=== PATIENT | male | born 1950 | race Caucasian/White ===

== ENCOUNTER 2016-09-13 13:35 | Inpatient (IN) | payer SELFPAY ==
[~2016-09-13] VITALS: Ht 180.3 cm; Wt 65.5 kg
[~2016-09-13 13:35] MED LIST: FLUT1DIS3 IH; TRAM50TA PO; VENTOLIN HFA18 GM INH
[2016-09-13] MEDS ORDERED: IV NORMAL SALINE 1000ML BAG 1,000 ML IV ONE (13:45)
[2016-09-13] MEDS ORDERED: methylPREDNISolone SOD SUCC PF 125 MG/2 ML VIAL. IV ONE (13:45)
[2016-09-13] MEDS ORDERED: IPRATRPIUM/ALBUTEROL 0.5/2.5MG 3 ML NEBU. NEB ONE (13:45)
[2016-09-13] MEDS ORDERED: MORPHINE SULFATE 10 MG/ML VIAL. IV ONE (13:45)
[2016-09-13 14:27] LABS: BASO % 0 % (0-3); EOS % 1 % (0-3); HEMATOCRIT 35.5 % (39.0-53.0); HEMOGLOBIN 11.6 g/dL (13.0-17.5); LYMPH # 0.8 x10^3/uL (1.0-4.8); LYMPH % 7 % (24-48); MEAN CORPUSCULAR HEMOGLOBIN 28 pg (25-35); MEAN CORPUSCULAR HGB CONC 33 g/dL (31-37); MEAN CORPUSCULAR VOLUME 86 fL (79-100); MONO % 7 % (0-9); NEUT % 84 % (31-73); PLATELET COUNT 352 x10^3/uL (140-400); RED BLOOD COUNT 4.12 x10^6/uL (4.30-5.70); RED CELL DISTRIBUTION WIDTH 15.1 % (11.5-14.5); WHITE BLOOD COUNT 10.6 x10^3/uL (4.0-11.0)
--- NOTE | 2016-09-13 14:34 | PHYS DOC ---
Past Medical History Past Medical History: COPD, Hypertension Additional Past Medical Histor: non small cell CA right lung dx 08/28/16 Past Surgical History: Other Additional Past Surgical Histo: L rotator cuff Alcohol Use: None Drug Use: None Adult General Chief Complaint Chief Complaint: WEAKNESS/GENERALIZED HPI HPI 65-year-old male who was recently diagnosed with non-small cell lung cancer presents with several day history of progressive shortness of breath and dyspnea on exertion. He denies any hemoptysis. He denies any fever chills or sweats. He states he is scheduled to start chemotherapy at [facility] on September 18, 2016. He states he did not go to today because they were closed ambulances. [] Review of Systems Review of Systems Constitutional: Denies fever or chills [] Eyes: Denies change in visual acuity, redness, or eye pain [] HENT: Denies nasal congestion or sore throat [] Respiratory: Shortness of breath [] Cardiovascular: No additional information not addressed in HPI [] GI: Denies abdominal pain, nausea, vomiting, bloody stools or diarrhea [] : Denies dysuria or hematuria [] Musculoskeletal: Denies back pain or joint pain [] Integument: Denies rash or skin lesions [] Neurologic: Denies headache, focal weakness or sensory changes [] Endocrine: Denies polyuria or polydipsia [] Current Medications Current Medications Current Medications Medications (Trade) Dose Ordered Sig/Bailey Start Time Stop Time Status Last Admin Dose Admin Albuterol/ Ipratropium (Duoneb) 3 ml 1X ONCE 09/13/16 13:45 09/13/16 13:48 DC 09/13/16 13:56 3 ML Methylprednisolone Sodium Succinate 125 mg 125 mg 1X ONCE 09/13/16 13:45 09/13/16 13:48 DC 09/13/16 14:13 125 MG Morphine Sulfate 5 mg 1X ONCE 09/13/16 13:45 09/13/16 13:48 DC 09/13/16 14:13 5 MG Sodium Chloride (Iv Sodium Chloride 0.9% 1000ml Bag) 1,000 ml @ 1,000 mls/hr 1X ONCE 09/13/16 13:45 09/13/16 14:44 09/13/16 14:12 1,000 MLS/HR Allergies Allergies Allergies Coded Allergies Type Severity Reaction Last Updated Verified Penicillins Allergy Intermediate 05/24/16 Yes Sulfa (Sulfonamide Antibiotics) Allergy Intermediate 05/24/16 Yes Physical Exam Physical Exam Constitutional: Well developed, well nourished, mild distress, non-toxic appearance. [] HENT: Normocephalic, atraumatic, bilateral external ears normal, oropharynx moist, no oral exudates, nose normal. [] Eyes: PERRLA, EOMI, conjunctiva normal, no discharge. [] Neck: Normal range of motion, no tenderness, supple, no stridor. [] Cardiovascular:Heart rate regular rhythm, no murmur [] Lungs & Thorax: Good breath sounds bilaterally no wheezes no rales [] Abdomen: Bowel sounds normal, soft, no tenderness, no masses, no pulsatile masses. [] Skin: Warm, dry, no erythema, no rash. [] Back: No tenderness, no CVA tenderness. [] Extremities: No tenderness, no cyanosis, no clubbing, ROM intact, no edema. [] Neurologic: Alert and oriented X 3, normal motor function, normal sensory function, no focal deficits noted. [] Psychologic: Depressed affect. [] Current Patient Data Vital Signs Vital Signs Date Time Temp Pulse Resp B/P Pulse Ox O2 Delivery O2 Flow Rate FiO2 09/13/16 14:13 23 94 3.0 09/13/16 13:56 Nasal Cannula 09/13/16 13:35 97.8 122 133/78 97.8 Lab Values Laboratory Tests Test 09/13/16 14:00 White Blood Count 10.6x10^3/uL (4.0-11.0) Red Blood Count 4.12x10^6/uL (4.30-5.70) L Hemoglobin 11.6g/dL (13.0-17.5) L Hematocrit 35.5% (39.0-53.0) L Mean Corpuscular Volume 86fL (79-100) Mean Corpuscular Hemoglobin 28pg (25-35) Mean Corpuscular Hemoglobin Concent 33g/dL (31-37) Red Cell Distribution Width 15.1% (11.5-14.5) H Platelet Count 352x10^3/uL (140-400) Neutrophils (%) (Auto) 84% (31-73) H Lymphocytes (%) (Auto) 7% (24-48) L Monocytes (%) (Auto) 7% (0-9) Eosinophils (%) (Auto) 1% (0-3) Basophils (%) (Auto) 0% (0-3) Neutrophils # (Auto) 8.9x10^3uL (1.8-7.7) H Lymphocytes # (Auto) 0.8x10^3/uL (1.0-4.8) L Monocytes # (Auto) 0.7x10^3/uL (0.0-1.1) Eosinophils # (Auto) 0.1x10^3/uL (0.0-0.7) Basophils # (Auto) 0.0x10^3/uL (0.0-0.2) Laboratory Tests 09/13/16 14:00 EKG EKG [EKG: Sinus tachycardia rate of [address]-T changes] Radiology/Procedures Radiology/Procedures [] Course & Med Decision Making Course & Med Decision Making Pertinent Labs and Imaging studies reviewed. (See chart for details) [] Dragon Disclaimer Dragon Disclaimer This electronic medical record was generated, in whole or in part, using a voice recognition dictation system. Departure Departure Referrals: CHAS BRAY (PCP) CECI BAKER DO Sep 13, 2016 14:34
[2016-09-13 14:38] LABS: CALCIUM 9.8 mg/dL (8.5-10.1); CREATININE 0.9 mg/dL (0.7-1.3); GFR 85.2; POTASSIUM 3.3 mmol/L (3.5-5.1)
[2016-09-13 14:44] LABS: ALBUMIN 2.9 g/dL (3.4-5.0); ALBUMIN/GLOBULIN RATIO 0.7 (1.0-1.7); TOTAL BILIRUBIN 0.4 mg/dL (0.2-1.0)
[2016-09-13] MEDS ORDERED: FENTANYL PF 100 MCG/2 ML VIAL. IV PRN (14:45)
[2016-09-13] MEDS ORDERED: ACETAMINOPHEN 325 MG TABLET. PO PRN ×2 (14:45→16:00)
[2016-09-13] MEDS ORDERED: ONDANSETRON PF 4 MG/2 ML VIAL. IV PRN ×2 (14:45→16:00)
--- NOTE | 2016-09-13 14:58 | EKG ---
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
[2016-09-13] MEDS ORDERED: CONTRAST GIVEN MC PRN (15:00)
[2016-09-13] MEDS ORDERED: IOHEXOL 300 MG/ML 100ML VIAL. IV ONE (15:15)
[2016-09-13] MEDS: IV NORMAL SALINE 1000ML BAG 1,000 ML IV SCH ×2 (15:18→21:31)
--- NOTE | 2016-09-13 15:37 | PDOC1 ---
History and Physical Date of Admission Date of Admission 09/13/16 Identification/Chief Complaint Chief Complaint sob, weakness Problems: Source Source: Caregiver, Chart review, Patient History of Present Illness History of Present Illness HPI HPI 65-year-old male comes for weakness mainly. I REMember this pt who was with me in 05/2016 for sob, with abd ct with possible lung Ca, Dr. peralta recommend broch and pt has not insurance to do as outpt bronch. However, pt felt ok at that time and signed AMA ,refused to do bronch and wanted to go home that day. His PMD even called me on the same day asking me why pt goes to his office now and i told him that pt signed AMA and his PMD justed said to fu with dr. Peralta as outpt. Not sure pt really fu coz now told me another story. Pt was sent to for CXR and was found lung CA, got bx on 08/28/16, but pathology still pending and supposed to have an appt with pathologist for the result next week. Pt has been so weak, with chronic cough, sputum, on home ow 2-3 L. denies fever , chills, + nausea, no vomiting. Pt has whole body joint pain, mainly shoulder and hips. supposed to [facility] but [facility] is closed for ER as per ERP. as per ERP, path is non small lung Ca, but denies. Past Medical History Cardiovascular: HTN Pulmonary: Asthma, COPD Past Surgical History Past Surgical History: No pertinent history Family History Family History: No Significant Social History Smoke: <1 pack per day ALCOHOL: occassional Drugs: None Current Medications Current Medications Current Medications Medications (Trade) Dose Ordered Sig/Bailey Start Time Stop Time Status Last Admin Dose Admin Acetaminophen (Tylenol) 650 mg PRN Q4HRS PRN 09/13/16 14:45 09/14/16 14:44 Albuterol/ Ipratropium (Duoneb) 3 ml RTQID 09/13/16 16:00 09/14/16 15:59 Fentanyl Citrate 50 mcg 50 mcg PRN Q2HR PRN 09/13/16 14:45 09/14/16 14:44 Info (Do NOT chart on this entry -- for MONITORING) 1 each PRN DAILY PRN 09/13/16 15:00 09/15/16 14:59 Iohexol (Omnipaque 300 Mg/ml) 75 ml 1X ONCE 09/13/16 15:15 09/13/16 15:16 DC 09/13/16 15:04 75 ML Methylprednisolone Sodium Succinate (Solu-Medrol 125mg Vial) 125 mg 1X ONCE 09/13/16 13:45 09/13/16 13:48 DC 09/13/16 14:13 125 MG Morphine Sulfate 5 mg 1X ONCE 09/13/16 13:45 09/13/16 13:48 DC 09/13/16 14:13 5 MG Ondansetron HCl (Zofran) 4 mg PRN Q8HRS PRN 09/13/16 14:45 09/14/16 14:44 Sodium Chloride (Iv Sodium Chloride 0.9% 1000ml Bag) 1,000 ml @ 150 mls/hr Q6H40M 09/13/16 14:45 09/14/16 14:44 09/13/16 15:18 150 MLS/HR Allergies Allergies Allergies Coded Allergies Type Severity Reaction Last Updated Verified Penicillins Allergy Intermediate 05/24/16 Yes Sulfa (Sulfonamide Antibiotics) Allergy Intermediate 05/24/16 Yes ROS Review of System CONSTITUTIONAL: No fever or chills EYES: No recent changes SKIN: No rash or itching CARDIOVASCULAR: No chest pain, syncope, palpitations, or edema RESPIRATORY: No SOB or cough GASTROINTESTINAL: No nausea, vomiting or abdominal pain NEUROLOGICAL: No headaches or weakness ENDOCRINE: No cold or heat intolerance GENITOURINARY: No urgency or frequency of urination MUSCULOSKELETAL: No back pain or joint pain LYMPHATICS: No enlarged lymph nodes PSYCHIATRIC: No anxiety or depression Physical Exam Physical Exam GEN.: No apparent distress. Alert and oriented. very weak. HEENT: Head is normocephalic, atraumatic NECK: Supple. LUNGS: bl decreased bs. HEART: RRR, S1, S2 present. Peripheral pulses intact ABDOMEN: Soft, nontender. Positive bowel sounds. EXTREMITIES: Without any cyanosis. NEUROLOGIC: Normal speech, normal tone PSYCHIATRIC: Normal affect, normal mood. SKIN: No ulcerations Vitals Vitals Vital Signs Date Time Temp Pulse Resp B/P Pulse Ox O2 Delivery O2 Flow Rate FiO2 09/13/16 15:08 111 28 147/83 94 Nasal Cannula 3 09/13/16 13:35 97.8 97.8 Labs Labs Laboratory Tests Test 09/13/16 14:00 White Blood Count 10.6x10^3/uL (4.0-11.0) Red Blood Count 4.12x10^6/uL (4.30-5.70) Hemoglobin 11.6g/dL (13.0-17.5) Hematocrit 35.5% (39.0-53.0) Mean Corpuscular Volume 86fL (79-100) Mean Corpuscular Hemoglobin 28pg (25-35) Mean Corpuscular Hemoglobin Concent 33g/dL (31-37) Red Cell Distribution Width 15.1% (11.5-14.5) Platelet Count 352x10^3/uL (140-400) Neutrophils (%) (Auto) 84% (31-73) Lymphocytes (%) (Auto) 7% (24-48) Monocytes (%) (Auto) 7% (0-9) Eosinophils (%) (Auto) 1% (0-3) Basophils (%) (Auto) 0% (0-3) Neutrophils # (Auto) 8.9x10^3uL (1.8-7.7) Lymphocytes # (Auto) 0.8x10^3/uL (1.0-4.8) Monocytes # (Auto) 0.7x10^3/uL (0.0-1.1) Eosinophils # (Auto) 0.1x10^3/uL (0.0-0.7) Basophils # (Auto) 0.0x10^3/uL (0.0-0.2) Sodium Level 134mmol/L (136-145) Potassium Level 3.3mmol/L (3.5-5.1) Chloride Level 93mmol/L (98-107) Carbon Dioxide Level 33mmol/L (21-32) Anion Gap 8 (6-14) Blood Urea Nitrogen 5mg/dL (8-26) Creatinine 0.9mg/dL (0.7-1.3) Estimated GFR (Cockcroft-Gault) 85.2 BUN/Creatinine Ratio 6 (6-20) Glucose Level 97mg/dL (70-99) Lactic Acid Level 0.9mmol/L (0.4-2.0) Calcium Level 9.8mg/dL (8.5-10.1) Total Bilirubin 0.4mg/dL (0.2-1.0) Aspartate Amino Transf (AST/SGOT) 19U/L (15-37) Alanine Aminotransferase (ALT/SGPT) 22U/L (16-63) Alkaline Phosphatase 98U/L (46-116) Troponin I Quantitative 0.023ng/mL (0.000-0.055) Total Protein 7.0g/dL (6.4-8.2) Albumin 2.9g/dL (3.4-5.0) Albumin/Globulin Ratio 0.7 (1.0-1.7) Laboratory Tests Test 09/13/16 14:00 White Blood Count 10.6x10^3/uL (4.0-11.0) Red Blood Count 4.12x10^6/uL (4.30-5.70) Hemoglobin 11.6g/dL (13.0-17.5) Hematocrit 35.5% (39.0-53.0) Mean Corpuscular Volume 86fL (79-100) Mean Corpuscular Hemoglobin 28pg (25-35) Mean Corpuscular Hemoglobin Concent 33g/dL (31-37) Red Cell Distribution Width 15.1% (11.5-14.5) Platelet Count 352x10^3/uL (140-400) Neutrophils (%) (Auto) 84% (31-73) Lymphocytes (%) (Auto) 7% (24-48) Monocytes (%) (Auto) 7% (0-9) Eosinophils (%) (Auto) 1% (0-3) Basophils (%) (Auto) 0% (0-3) Neutrophils # (Auto) 8.9x10^3uL (1.8-7.7) Lymphocytes # (Auto) 0.8x10^3/uL (1.0-4.8) Monocytes # (Auto) 0.7x10^3/uL (0.0-1.1) Eosinophils # (Auto) 0.1x10^3/uL (0.0-0.7) Basophils # (Auto) 0.0x10^3/uL (0.0-0.2) Sodium Level 134mmol/L (136-145) Potassium Level 3.3mmol/L (3.5-5.1) Chloride Level 93mmol/L (98-107) Carbon Dioxide Level 33mmol/L (21-32) Anion Gap 8 (6-14) Blood Urea Nitrogen 5mg/dL (8-26) Creatinine 0.9mg/dL (0.7-1.3) Estimated GFR (Cockcroft-Gault) 85.2 BUN/Creatinine Ratio 6 (6-20) Glucose Level 97mg/dL (70-99) Lactic Acid Level 0.9mmol/L (0.4-2.0) Calcium Level 9.8mg/dL (8.5-10.1) Total Bilirubin 0.4mg/dL (0.2-1.0) Aspartate Amino Transf (AST/SGOT) 19U/L (15-37) Alanine Aminotransferase (ALT/SGPT) 22U/L (16-63) Alkaline Phosphatase 98U/L (46-116) Troponin I Quantitative 0.023ng/mL (0.000-0.055) Total Protein 7.0g/dL (6.4-8.2) Albumin 2.9g/dL (3.4-5.0) Albumin/Globulin Ratio 0.7 (1.0-1.7) VTE Prophylaxis Ordered VTE Prophylaxis Devices: Yes VTE Pharmacological Prophylaxi: Yes Assessment/Plan Assessment/Plan Acute on chronic hypoxic resp failure , home o2 2L newly diagnosed lung Ca, path pending COPD HTN + SIRS wo infection, 2/2 lung Ca likely MILD Malnutrition hypokalemia joint pain, need rule out bone mets smoker plan: 1. pulm, onco consult 2. duone neb 3. pain control 4. CTA chest done, result pending check CT for abd/pelvis for mets, bone scan for mets 5. IVF replete K dvt ppx PTOT poor prognosis MIKE DESHPANDE MD Sep 13, 2016 15:37
--- NOTE | 2016-09-13 15:43 | RAD ---
CTA of the chest with contrast, 09/13/2016: History: Lung cancer, pain Multidetector CT imaging was performed following an IV bolus injection of iodinated contrast material. Multiplanar reconstructions were produced including coronal MIP images. Comparison is made to a study from 05/25/2016. The central pulmonary arteries are well opacified and no filling defects are seen to suggest pulmonary emboli. There is calcific plaquing of the thoracic aorta and its branches without evidence of aneurysm. Scattered coronary artery calcifications are present. A trace amount pericardial fluid is evident. There is mediastinal adenopathy which has progressed since the previous exam. This includes a 4 x 2.2 cm node at the left AP window level. A left hilar mass has increased in size. There is debris in the lateral aspect of the left main bronchus with lack of aeration of the proximal left upper and lower lobe bronchi at the level of this mass. Invasive tumor is likely. There are emphysematous changes in both lungs with scattered parenchymal scars. There is mild atelectasis/consolidation posterolaterally in the left lower lobe. There are additional tree-in-bud opacities in the left lower lobe and posterior aspect of the left upper lobe compatible with pneumonia, probably on a postobstructive basis. A destructive process present in the posterior aspect of the right third rib on the previous study has progressed. There is now a moderate sized mass with increasing rib destruction. There is also destruction of portions of the right side of the L2 and L3 vertebral bodies as well as the posterior elements. The left posterior elements at T3 are also partially destroyed. There is presumably involvement of the spinal canal at this level. Several additional destructive bony lesions are seen in the lower thoracic spine. These include the left pedicle at T12, and the right transverse process and pedicle at T10. There are 13 sets of ribs in this patient. The ill-defined low density lesion seen in the left lobe of liver on the previous study appears to have increased in size. There is a tiny radiopacity in the posterior aspect of the gallbladder. IMPRESSION: 1. No CT evidence of central pulmonary emboli. 2. Enlarging left hilar mass with obstruction of the central bronchi on the left and increasing adjacent mediastinal adenopathy, compatible with the given history of lung cancer. 3. Mild left parahilar and lower lobe infiltrates suggesting pneumonia on a postobstructive basis. 4. Emphysema with parenchymal scarring. 5. 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 6. Additional lower thoracic bony metastases. 7. Enlarging liver lesion, likely on a metastatic basis. PQRS Compliance Statement: One or more of the following individualized dose reduction techniques were utilized for this examination: 1. Automated exposure control 2. Adjustment of the mA and/or kV according to patient size 3. Use of iterative reconstruction technique
[2016-09-13] MEDS ORDERED: ALBUTEROL SULFATE 2.5 MG/3 ML NEBU. NEB PRN (16:00)
[2016-09-13] MEDS ORDERED: MORPHINE SULFATE 2 MG/ML DISP.SYRIN. IV PRN (16:00)
[2016-09-13] MEDS ORDERED: hydrALAZINE 20 MG/ML VIAL. IVP PRN (16:00)
[2016-09-13] MEDS ORDERED: IPRATRPIUM/ALBUTEROL 0.5/2.5MG 3 ML NEBU. NEB SCH (16:00)
[2016-09-13] MEDS ORDERED: POTASSIUM CHLORIDE 20 MEQ TABLET.ER. PO ONE (16:00)
[2016-09-13] MEDS: ENOXAPARIN 40 MG/0.4 ML DISP.SYRIN. SQ SCH (16:49)
[2016-09-13] MEDS: TRAMADOL 50 MG TABLET. PO PRN (16:50)
[2016-09-13 17:30] VITALS: BP 133/85
[2016-09-13 19:30] VITALS: BP 111/64
[2016-09-13] MEDS: IPRATRPIUM/ALBUTEROL 0.5/2.5MG 3 ML NEBU. NEB SCH (20:37)
[2016-09-13] MEDS: OXYCODONE/APAP 5/325 TABLET. PO PRN (21:29)
[2016-09-13 23:00] VITALS: BP 134/53
[2016-09-14 03:00] VITALS: BP 140/65
[2016-09-14] MEDS: OXYCODONE/APAP 5/325 TABLET. PO PRN ×4 (04:24→23:46)
[2016-09-14 05:23] LABS: BASO % 0 % (0-3); EOS % 0 % (0-3); HEMATOCRIT 32.3 % (39.0-53.0); HEMOGLOBIN 10.5 g/dL (13.0-17.5); LYMPH # 0.3 x10^3/uL (1.0-4.8); LYMPH % 7 % (24-48); MEAN CORPUSCULAR HEMOGLOBIN 28 pg (25-35); MEAN CORPUSCULAR HGB CONC 33 g/dL (31-37); MEAN CORPUSCULAR VOLUME 86 fL (79-100); MONO % 5 % (0-9); NEUT % 88 % (31-73); PLATELET COUNT 350 x10^3/uL (140-400); RED BLOOD COUNT 3.76 x10^6/uL (4.30-5.70); RED CELL DISTRIBUTION WIDTH 15.4 % (11.5-14.5); WHITE BLOOD COUNT 4.8 x10^3/uL (4.0-11.0)
[2016-09-14] MEDS: IV NORMAL SALINE 1000ML BAG 1,000 ML IV SCH ×2 (05:30→10:45)
[2016-09-14 05:32] LABS: CALCIUM 8.6 mg/dL (8.5-10.1); CREATININE 0.8 mg/dL (0.7-1.3); GFR 97.6; POTASSIUM 4.1 mmol/L (3.5-5.1)
[2016-09-14] MEDS ORDERED: CONTRAST GIVEN MC PRN (06:45)
[2016-09-14] MEDS ORDERED: IOHEXOL 300 MG/ML 100ML VIAL. IV ONE (07:00)
[2016-09-14] MEDS ORDERED: IOHEXOL 240 MG/ML 50ML VIAL. PO ONE (07:00)
[2016-09-14 07:22] VITALS: BP 101/62
[2016-09-14 08:15] LABS: PLT ESTIMATE ADEQUATE (ADEQUATE)
[2016-09-14] MEDS: IPRATRPIUM/ALBUTEROL 0.5/2.5MG 3 ML NEBU. NEB SCH ×4 (08:17→19:15)
--- NOTE | 2016-09-14 09:38 | PDOC2 ---
CAROLINA DOMINGUEZ [employer]LA[employer]ER 09/14/16 0938: CARDIAC CONSULT DATE OF CONSULT Date of Consult DATE: 09/14/16 TIME: 09:32 REASON FOR CONSULT Reason for Consult: Tachycardia REFERRING PHYSICIAN Referring Physician: Dr. Sainz SOURCE Source: Chart review, Patient HISTORY OF PRESENT ILLNESS HISTORY OF PRESENT ILLNESS This is a 65 yo male, with a history of CAD s/p stent approximately 20 yrs ago who was recently diagnosed with non-small cell lung cancer, who presented with complaints of shortness of breath. Report symptoms have been ongoing for the last couple of weeks. Denies any chest pain, palpitations, diaphoresis, dizziness, nausea/vomiting, or recent fevers/illness. Denies any orthopnea but reports he sleeps on his side for comfort due to back pain. Has been experiencing bilateral shoulder pain that has now radiated to neck. Is due to start chemotherapy at [facility] on September 18. 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 Underwent stress test and echocardiogram for clearance prior to rotator cuff surgery in October 2015. PAST MEDICAL HISTORY Cardiovascular: CAD (s/p stent), HTN Pulmonary: COPD, Other (non-small cell lung CA) GI: No pertinent hx Heme/Onc: No pertinent hx Hepatobiliary: No pertinent hx Psych: Anxiety Musculoskeletal: Osteoarthritis Rheumatologic: No pertinent hx Infectious disease: No pertinent hx ENT: No pertinent hx Renal/: No pertinent hx Endocrine: No pertinent hx Dermatology: No pertinent hx PAST SURGICAL HISTORY Past Surgical History: Other (cardiac stent, left rotator cuff sx) FAMILY HISTORY Family History: Other (noncontributory ) SOCIAL HISTORY Smoke: Quit ALCOHOL: none Drugs: None Lives: with Family CURRENT MEDICATIONS CURRENT MEDICATIONS Current Medications Medications (Trade) Dose Ordered Sig/Baiely Route PRN Reason Start Time Stop Time Status Last Admin Dose Admin Albuterol/ Ipratropium (Duoneb) 3 ml 1X ONCE NEB 09/13/16 13:45 09/13/16 13:48 DC 09/13/16 13:56 Methylprednisolone Sodium Succinate 125 mg 125 mg 1X ONCE IV 09/13/16 13:45 09/13/16 13:48 DC 09/13/16 14:13 Sodium Chloride (Iv Sodium Chloride 0.9% 1000ml Bag) 1,000 ml @ 1,000 mls/hr 1X ONCE IV 09/13/16 13:45 09/13/16 14:44 DC 09/13/16 14:12 Morphine Sulfate 5 mg 1X ONCE IV 09/13/16 13:45 09/13/16 13:48 DC 09/13/16 14:13 Iohexol 75 ml 75 ml 1X ONCE IV 09/13/16 15:15 09/13/16 15:16 DC 09/13/16 15:04 Sodium Chloride (Iv Sodium Chloride 0.9% 1000ml Bag) 1,000 ml @ 150 mls/hr Q6H40M IV 09/13/16 14:45 09/14/16 14:44 09/14/16 05:30 Albuterol/ Ipratropium (Duoneb) 3 ml RTQID NEB 09/13/16 16:00 09/13/16 16:00 DC 09/13/16 15:37 Tramadol HCl (Ultram) 50 mg PRN TID PRN PO PAIN 09/13/16 16:00 09/13/16 16:50 Oxycodone/ Acetaminophen (Percocet 5/325) 1 tab PRN Q6HRS PRN PO PAIN 09/13/16 16:00 09/14/16 04:24 Albuterol/ Ipratropium (Duoneb) 3 ml QID NEB 09/13/16 17:00 09/14/16 08:17 Enoxaparin Sodium (Lovenox 40mg Syringe) 40 mg Q24H SQ 09/13/16 16:00 09/13/16 16:49 Potassium Chloride (Klor-Con) 40 meq 1X ONCE PO 09/13/16 16:00 09/13/16 16:01 DC 09/13/16 16:50 ALLERGIES ALLERGIES: Coded Allergies: Penicillins (Verified Allergy, Intermediate, 05/24/16) Sulfa (Sulfonamide Antibiotics) (Verified Allergy, Intermediate, 05/24/16) ROS Review of System 14 point ROS conducted with pertinent positives noted above in HPI PHYSICAL EXAM General: Alert, Oriented X3, Cooperative, mild distress HEENT: Atraumatic Lungs: Clear to auscultation, Other (diminished throughout) Heart: Normal S1, Normal S2, Other (SR-ST ) Abdomen: Soft Extremities: No edema, Normal pulses Skin: No breakdown, No significant lesion Neuro: Normal speech, Sensation intact Psych/Mental Status: Mental status NL, Mood NL MUSCULOSKELETAL: Osteoarthritic changes both hands VITALS VITALS Vital Signs Date Time Temp Pulse Resp B/P Pulse Ox O2 Delivery O2 Flow Rate FiO2 09/14/16 08:18 96 Nasal Cannula 3.0 09/14/16 07:22 98.1 93 17 101/62 98.1 LABS Lab: Laboratory Tests Test 09/13/16 14:00 09/13/16 16:50 09/13/16 20:57 09/14/16 04:30 White Blood Count 10.6x10^3/uL (4.0-11.0) 4.8x10^3/uL (4.0-11.0) Red Blood Count 4.12x10^6/uL (4.30-5.70) 3.76x10^6/uL (4.30-5.70) Hemoglobin 11.6g/dL (13.0-17.5) 10.5g/dL (13.0-17.5) Hematocrit 35.5% (39.0-53.0) 32.3% (39.0-53.0) Mean Corpuscular Volume 86fL (79-100) 86fL (79-100) Mean Corpuscular Hemoglobin 28pg (25-35) 28pg (25-35) Mean Corpuscular Hemoglobin Concent 33g/dL (31-37) 33g/dL (31-37) Red Cell Distribution Width 15.1% (11.5-14.5) 15.4% (11.5-14.5) Platelet Count 352x10^3/uL (140-400) 350x10^3/uL (140-400) Neutrophils (%) (Auto) 84% (31-73) 88% (31-73) Lymphocytes (%) (Auto) 7% (24-48) 7% (24-48) Monocytes (%) (Auto) 7% (0-9) 5% (0-9) Eosinophils (%) (Auto) 1% (0-3) 0% (0-3) Basophils (%) (Auto) 0% (0-3) 0% (0-3) Neutrophils # (Auto) 8.9x10^3uL (1.8-7.7) 4.2x10^3uL (1.8-7.7) Lymphocytes # (Auto) 0.8x10^3/uL (1.0-4.8) 0.3x10^3/uL (1.0-4.8) Monocytes # (Auto) 0.7x10^3/uL (0.0-1.1) 0.2x10^3/uL (0.0-1.1) Eosinophils # (Auto) 0.1x10^3/uL (0.0-0.7) 0.0x10^3/uL (0.0-0.7) Basophils # (Auto) 0.0x10^3/uL (0.0-0.2) 0.0x10^3/uL (0.0-0.2) Sodium Level 134mmol/L (136-145) 140mmol/L (136-145) Potassium Level 3.3mmol/L (3.5-5.1) 4.1mmol/L (3.5-5.1) Chloride Level 93mmol/L (98-107) 102mmol/L (98-107) Carbon Dioxide Level 33mmol/L (21-32) 28mmol/L (21-32) Anion Gap 8 (6-14) 10 (6-14) Blood Urea Nitrogen 5mg/dL (8-26) 7mg/dL (8-26) Creatinine 0.9mg/dL (0.7-1.3) 0.8mg/dL (0.7-1.3) Estimated GFR (Cockcroft-Gault) 85.2 97.6 BUN/Creatinine Ratio 6 (6-20) Glucose Level 97mg/dL (70-99) 150mg/dL (70-99) Lactic Acid Level 0.9mmol/L (0.4-2.0) 0.8mmol/L (0.4-2.0) Calcium Level 9.8mg/dL (8.5-10.1) 8.6mg/dL (8.5-10.1) Total Bilirubin 0.4mg/dL (0.2-1.0) Aspartate Amino Transf (AST/SGOT) 19U/L (15-37) Alanine Aminotransferase (ALT/SGPT) 22U/L (16-63) Alkaline Phosphatase 98U/L (46-116) Troponin I Quantitative 0.023ng/mL (0.000-0.055) < 0.017ng/mL (0.000-0.055) < 0.017ng/mL (0.000-0.055) Total Protein 7.0g/dL (6.4-8.2) Albumin 2.9g/dL (3.4-5.0) Albumin/Globulin Ratio 0.7 (1.0-1.7) Segmented Neutrophils % 90% (35-66) Lymphocytes % 6% (24-48) Monocytes % 3% (0-10) Platelet Estimate Adequate (ADEQUATE) ECHOCARDIOGRAM ECHOCARDIOGRAM <Conclusion> Left ventricle systolic function is mildly decreased. The Ejection Fraction is 40-45%. There is mild hypokinesis in the mid to apical anterior wall. The basal to mid inferior wall is also hypokinetic. No evidence of right to left shunt by agitated saline contrast. The interatrial septum is intact with no evidence for an atrial septal defect or patent foramen ovale as noted on 2-D or Doppler imaging. Doppler and Color Flow revealed trace tricuspid regurgitation. There is moderate pulmonary hypertension. The PA pressure was estimated at 53 mmHg. DATE: 05/25/16 1120 STRESS TEST STRESS TEST Conclusion 1. A medium in size and moderate in intensity defect noted along the apical inferior wall with only a minimal amount of reversibility noted to suggest slight ischemia. No evidence of previous myocardial infarction appreciated. 2. Ejection fraction calculated to be 57% with normal wall motion on gated SPECT images. 3. Abnormal nuclear imaging scan. 4. Findings are consistent with a low to intermediate risk scan. DATE: 08/21/14 0836 ASSESSMENT/PLAN ASSESSMENT/PLAN 1. Acute on chronic respiratory failure with underlying Lung CA with hepatic and bone metastasis Chest CT notable for central bronchi obstruction per pulmonary and oncology 2. Tachycardia reactive; secondary to pul status no BB with underlying lung dx/obstruction could consider cardizem or dig for rate control if significantly elevated will monitor for now. 3. h/o CAD with prior stenting- detail unknown 08/23 MPI notable for moderate apical inferior wall defect with minimal reversibility TTE 10/26 with LVEF 40-45% with mid to apical anterior wall and basal to mid inferior wall hypokinesis given metastatic lung CA, recommend conservative management at this time, but could consider MPI depending upon CA staging/life expectancy. 4. COPD O2 dependent on nebs PRN per pulm 5. HTN controlled. 6. Hypokalemia replaced. Monitor lytes 7. Malnutrition Problems: COREY MAN MD 09/15/16 0955: CARDIAC CONSULT ALLERGIES ALLERGIES: Coded Allergies: Penicillins (Verified Allergy, Intermediate, 05/24/16) Sulfa (Sulfonamide Antibiotics) (Verified Allergy, Intermediate, 05/24/16) ASSESSMENT/PLAN ASSESSMENT/PLAN Patient seen and examined. Agree with [employer]'s assessment and plan. Acute on chronic respiratory failure secondary to bronchial obstruction. Sinus tachycardia physiologic secondary to respiratory failure. Expect resolution of tachycardia once respiratory distress resolves. Recent 2-D echo showed LVEF 40- 45%. CAD status stable. Continue current medical regimen. Thank you for your consultation. Problems: CAROLINA DOMINGUEZ APRN Sep 14, 2016 09:38 COREY MAN MD Sep 15, 2016 09:55
[2016-09-14] MEDS ORDERED: LORAZEPAM 2 MG/ML VIAL IV ONE ×2 (10:15→15:00)
--- NOTE | 2016-09-14 10:47 | PDOC ---
PROGRESS NOTES Chief Complaint Chief Complaint Weakness, SOB ASSESSMENT AND PLAN: 1. Acute on chronic hypoxic resp failure 2. COPD, O2 dependent: on nebs PRN. cont O2 2L 3. Lung Ca: recent bx, path pending. not staged? onc consult 4. HTN: borderline. not on meds at home. PRN hydralazine 5. Hypokalemia: resolved 6. Malnutrition: mild-moderate. protein supplements Vitals Vitals Vital Signs Date Time Temp Pulse Resp B/P Pulse Ox O2 Delivery O2 Flow Rate FiO2 09/14/16 08:18 96 Nasal Cannula 3.0 09/14/16 07:22 98.1 93 17 101/62 98.1 Physical Exam General: Alert, Cooperative, No acute distress Heart: Regular rate Lungs: Wheezing Abdomen: Normal bowel sounds, No tenderness Extremities: No edema Skin: No rashes Labs LABS Laboratory Tests Test 09/13/16 14:00 09/13/16 16:50 09/13/16 20:57 09/14/16 04:30 White Blood Count 10.6x10^3/uL (4.0-11.0) 4.8x10^3/uL (4.0-11.0) Red Blood Count 4.12x10^6/uL (4.30-5.70) 3.76x10^6/uL (4.30-5.70) Hemoglobin 11.6g/dL (13.0-17.5) 10.5g/dL (13.0-17.5) Hematocrit 35.5% (39.0-53.0) 32.3% (39.0-53.0) Mean Corpuscular Volume 86fL (79-100) 86fL (79-100) Mean Corpuscular Hemoglobin 28pg (25-35) 28pg (25-35) Mean Corpuscular Hemoglobin Concent 33g/dL (31-37) 33g/dL (31-37) Red Cell Distribution Width 15.1% (11.5-14.5) 15.4% (11.5-14.5) Platelet Count 352x10^3/uL (140-400) 350x10^3/uL (140-400) Neutrophils (%) (Auto) 84% (31-73) 88% (31-73) Lymphocytes (%) (Auto) 7% (24-48) 7% (24-48) Monocytes (%) (Auto) 7% (0-9) 5% (0-9) Eosinophils (%) (Auto) 1% (0-3) 0% (0-3) Basophils (%) (Auto) 0% (0-3) 0% (0-3) Neutrophils # (Auto) 8.9x10^3uL (1.8-7.7) 4.2x10^3uL (1.8-7.7) Lymphocytes # (Auto) 0.8x10^3/uL (1.0-4.8) 0.3x10^3/uL (1.0-4.8) Monocytes # (Auto) 0.7x10^3/uL (0.0-1.1) 0.2x10^3/uL (0.0-1.1) Eosinophils # (Auto) 0.1x10^3/uL (0.0-0.7) 0.0x10^3/uL (0.0-0.7) Basophils # (Auto) 0.0x10^3/uL (0.0-0.2) 0.0x10^3/uL (0.0-0.2) Sodium Level 134mmol/L (136-145) 140mmol/L (136-145) Potassium Level 3.3mmol/L (3.5-5.1) 4.1mmol/L (3.5-5.1) Chloride Level 93mmol/L (98-107) 102mmol/L (98-107) Carbon Dioxide Level 33mmol/L (21-32) 28mmol/L (21-32) Anion Gap 8 (6-14) 10 (6-14) Blood Urea Nitrogen 5mg/dL (8-26) 7mg/dL (8-26) Creatinine 0.9mg/dL (0.7-1.3) 0.8mg/dL (0.7-1.3) Estimated GFR (Cockcroft-Gault) 85.2 97.6 BUN/Creatinine Ratio 6 (6-20) Glucose Level 97mg/dL (70-99) 150mg/dL (70-99) Lactic Acid Level 0.9mmol/L (0.4-2.0) 0.8mmol/L (0.4-2.0) Calcium Level 9.8mg/dL (8.5-10.1) 8.6mg/dL (8.5-10.1) Total Bilirubin 0.4mg/dL (0.2-1.0) Aspartate Amino Transf (AST/SGOT) 19U/L (15-37) Alanine Aminotransferase (ALT/SGPT) 22U/L (16-63) Alkaline Phosphatase 98U/L (46-116) Troponin I Quantitative 0.023ng/mL (0.000-0.055) < 0.017ng/mL (0.000-0.055) < 0.017ng/mL (0.000-0.055) Total Protein 7.0g/dL (6.4-8.2) Albumin 2.9g/dL (3.4-5.0) Albumin/Globulin Ratio 0.7 (1.0-1.7) Segmented Neutrophils % 90% (35-66) Lymphocytes % 6% (24-48) Monocytes % 3% (0-10) Platelet Estimate Adequate (ADEQUATE) Review of Systems Review of Systems resting in bed, denies pain or SOB. no energy Comment Review of Relevant I have reviewed the following items susan (where applicable) has been applied. Labs Laboratory Tests Test 09/13/16 14:00 09/13/16 16:50 09/13/16 20:57 09/14/16 04:30 White Blood Count 10.6x10^3/uL (4.0-11.0) 4.8x10^3/uL (4.0-11.0) Red Blood Count 4.12x10^6/uL (4.30-5.70) 3.76x10^6/uL (4.30-5.70) Hemoglobin 11.6g/dL (13.0-17.5) 10.5g/dL (13.0-17.5) Hematocrit 35.5% (39.0-53.0) 32.3% (39.0-53.0) Mean Corpuscular Volume 86fL (79-100) 86fL (79-100) Mean Corpuscular Hemoglobin 28pg (25-35) 28pg (25-35) Mean Corpuscular Hemoglobin Concent 33g/dL (31-37) 33g/dL (31-37) Red Cell Distribution Width 15.1% (11.5-14.5) 15.4% (11.5-14.5) Platelet Count 352x10^3/uL (140-400) 350x10^3/uL (140-400) Neutrophils (%) (Auto) 84% (31-73) 88% (31-73) Lymphocytes (%) (Auto) 7% (24-48) 7% (24-48) Monocytes (%) (Auto) 7% (0-9) 5% (0-9) Eosinophils (%) (Auto) 1% (0-3) 0% (0-3) Basophils (%) (Auto) 0% (0-3) 0% (0-3) Neutrophils # (Auto) 8.9x10^3uL (1.8-7.7) 4.2x10^3uL (1.8-7.7) Lymphocytes # (Auto) 0.8x10^3/uL (1.0-4.8) 0.3x10^3/uL (1.0-4.8) Monocytes # (Auto) 0.7x10^3/uL (0.0-1.1) 0.2x10^3/uL (0.0-1.1) Eosinophils # (Auto) 0.1x10^3/uL (0.0-0.7) 0.0x10^3/uL (0.0-0.7) Basophils # (Auto) 0.0x10^3/uL (0.0-0.2) 0.0x10^3/uL (0.0-0.2) Sodium Level 134mmol/L (136-145) 140mmol/L (136-145) Potassium Level 3.3mmol/L (3.5-5.1) 4.1mmol/L (3.5-5.1) Chloride Level 93mmol/L (98-107) 102mmol/L (98-107) Carbon Dioxide Level 33mmol/L (21-32) 28mmol/L (21-32) Anion Gap 8 (6-14) 10 (6-14) Blood Urea Nitrogen 5mg/dL (8-26) 7mg/dL (8-26) Creatinine 0.9mg/dL (0.7-1.3) 0.8mg/dL (0.7-1.3) Estimated GFR (Cockcroft-Gault) 85.2 97.6 BUN/Creatinine Ratio 6 (6-20) Glucose Level 97mg/dL (70-99) 150mg/dL (70-99) Lactic Acid Level 0.9mmol/L (0.4-2.0) 0.8mmol/L (0.4-2.0) Calcium Level 9.8mg/dL (8.5-10.1) 8.6mg/dL (8.5-10.1) Total Bilirubin 0.4mg/dL (0.2-1.0) Aspartate Amino Transf (AST/SGOT) 19U/L (15-37) Alanine Aminotransferase (ALT/SGPT) 22U/L (16-63) Alkaline Phosphatase 98U/L (46-116) Troponin I Quantitative 0.023ng/mL (0.000-0.055) < 0.017ng/mL (0.000-0.055) < 0.017ng/mL (0.000-0.055) Total Protein 7.0g/dL (6.4-8.2) Albumin 2.9g/dL (3.4-5.0) Albumin/Globulin Ratio 0.7 (1.0-1.7) Segmented Neutrophils % 90% (35-66) Lymphocytes % 6% (24-48) Monocytes % 3% (0-10) Platelet Estimate Adequate (ADEQUATE) Laboratory Tests Test 09/13/16 14:00 09/13/16 16:50 09/13/16 20:57 09/14/16 04:30 White Blood Count 10.6x10^3/uL (4.0-11.0) 4.8x10^3/uL (4.0-11.0) Red Blood Count 4.12x10^6/uL (4.30-5.70) 3.76x10^6/uL (4.30-5.70) Hemoglobin 11.6g/dL (13.0-17.5) 10.5g/dL (13.0-17.5) Hematocrit 35.5% (39.0-53.0) 32.3% (39.0-53.0) Mean Corpuscular Volume 86fL (79-100) 86fL (79-100) Mean Corpuscular Hemoglobin 28pg (25-35) 28pg (25-35) Mean Corpuscular Hemoglobin Concent 33g/dL (31-37) 33g/dL (31-37) Red Cell Distribution Width 15.1% (11.5-14.5) 15.4% (11.5-14.5) Platelet Count 352x10^3/uL (140-400) 350x10^3/uL (140-400) Neutrophils (%) (Auto) 84% (31-73) 88% (31-73) Lymphocytes (%) (Auto) 7% (24-48) 7% (24-48) Monocytes (%) (Auto) 7% (0-9) 5% (0-9) Eosinophils (%) (Auto) 1% (0-3) 0% (0-3) Basophils (%) (Auto) 0% (0-3) 0% (0-3) Neutrophils # (Auto) 8.9x10^3uL (1.8-7.7) 4.2x10^3uL (1.8-7.7) Lymphocytes # (Auto) 0.8x10^3/uL (1.0-4.8) 0.3x10^3/uL (1.0-4.8) Monocytes # (Auto) 0.7x10^3/uL (0.0-1.1) 0.2x10^3/uL (0.0-1.1) Eosinophils # (Auto) 0.1x10^3/uL (0.0-0.7) 0.0x10^3/uL (0.0-0.7) Basophils # (Auto) 0.0x10^3/uL (0.0-0.2) 0.0x10^3/uL (0.0-0.2) Sodium Level 134mmol/L (136-145) 140mmol/L (136-145) Potassium Level 3.3mmol/L (3.5-5.1) 4.1mmol/L (3.5-5.1) Chloride Level 93mmol/L (98-107) 102mmol/L (98-107) Carbon Dioxide Level 33mmol/L (21-32) 28mmol/L (21-32) Anion Gap 8 (6-14) 10 (6-14) Blood Urea Nitrogen 5mg/dL (8-26) 7mg/dL (8-26) Creatinine 0.9mg/dL (0.7-1.3) 0.8mg/dL (0.7-1.3) Estimated GFR (Cockcroft-Gault) 85.2 97.6 BUN/Creatinine Ratio 6 (6-20) Glucose Level 97mg/dL (70-99) 150mg/dL (70-99) Lactic Acid Level 0.9mmol/L (0.4-2.0) 0.8mmol/L (0.4-2.0) Calcium Level 9.8mg/dL (8.5-10.1) 8.6mg/dL (8.5-10.1) Total Bilirubin 0.4mg/dL (0.2-1.0) Aspartate Amino Transf (AST/SGOT) 19U/L (15-37) Alanine Aminotransferase (ALT/SGPT) 22U/L (16-63) Alkaline Phosphatase 98U/L (46-116) Troponin I Quantitative 0.023ng/mL (0.000-0.055) < 0.017ng/mL (0.000-0.055) < 0.017ng/mL (0.000-0.055) Total Protein 7.0g/dL (6.4-8.2) Albumin 2.9g/dL (3.4-5.0) Albumin/Globulin Ratio 0.7 (1.0-1.7) Segmented Neutrophils % 90% (35-66) Lymphocytes % 6% (24-48) Monocytes % 3% (0-10) Platelet Estimate Adequate (ADEQUATE) Medications Current Medications Albuterol/ Ipratropium (Duoneb) 3 ml 1X ONCE NEB Last administered on t 13:56; Start 09/13/16 at 13:45; Stop 09/13/16 at 13:48; Status DC Methylprednisolone Sodium Succinate 125 mg 125 mg 1X ONCE IV Last administered on 09/13/16 14:13; Start 09/13/16 at 13:45; Stop 09/13/16 at 13:48; Status DC Sodium Chloride (Iv Sodium Chloride 0.9% 1000ml Bag) 1,000 ml @ 1,000 mls/hr 1X ONCE IV Last administered on 09/13/16 14:12; Start 09/13/16 at 13:45; Stop 09/13/16 at 14:44; Status DC Morphine Sulfate 5 mg 1X ONCE IV Last administered on 09/13/16 14:13; Start at 13:45; Stop 09/13/16 at 13:48; Status DC Iohexol (Omnipaque 300 Mg/ml) 75 ml 1X ONCE IV Last administered on 09/13/16 15:04; Start 09/13/16 at 15:15; Stop 09/13/16 at 15:16; Status DC Info (Do NOT chart on this entry -- for MONITORING) 1 each PRN DAILY PRN MC SEE COMMENTS; Start 09/13/16 at 15:00; Stop 09/15/16 at 14:59 Ondansetron HCl (Zofran) 4 mg PRN Q8HRS PRN IV NAUSEA/VOMITING; Start 09/13/16 at 14:45; Stop 09/13/16 at 15:57; Status DC Fentanyl Citrate 50 mcg 50 mcg PRN Q2HR PRN IV PAIN; Start 09/13/16 at 14:45; Stop 09/14/16 at 14:44 Sodium Chloride (Iv Sodium Chloride 0.9% 1000ml Bag) 1,000 ml @ 150 mls/hr Q6H40M IV Last administered on 09/14/16 05:30; Start 09/13/16 at 14:45; Stop 09/14/16 at 14:44 Acetaminophen (Tylenol) 650 mg PRN Q4HRS PRN PO FEVER; Start 09/13/16 at 14:45; Stop 09/13/16 at 15:57; Status DC Albuterol/ Ipratropium (Duoneb) 3 ml RTQID NEB Last administered on 09/13/16 15 :37; Start 09/13/16 at 16:00; Stop 09/13/16 at 16:00; Status DC Tramadol HCl (Ultram) 50 mg PRN TID PRN PO PAIN Last administered on 09/13/16 16:50; Start 09/13/16 at 16:00 Morphine Sulfate 2 mg PRN Q4HRS PRN IV PAIN; Start 09/13/16 at 16:00 Oxycodone/ Acetaminophen (Percocet 5/325) 1 tab PRN Q6HRS PRN PO PAIN Last administered on 09/14/16 04:24; Start 09/13/16 at 16:00 Albuterol/ Ipratropium (Duoneb) 3 ml QID NEB Last administered on 09/14/16 08: 17; Start 09/13/16 at 17:00 Albuterol Sulfate (Ventolin Neb Soln) 2.5 mg PRN Q4HRS PRN NEB SHORTNESS OF BREATH; Start 09/13/16 at 16:00 Acetaminophen (Tylenol) 650 mg PRN Q6HRS PRN PO FEVER; Start 09/13/16 at 16:00 Ondansetron HCl (Zofran) 4 mg PRN Q6HRS PRN IV NAUSEA; Start 09/13/16 at 16:00 Enoxaparin Sodium (Lovenox 40mg Syringe) 40 mg Q24H SQ Last administered on 09/13 16:49; Start 09/13/16 at 16:00 Potassium Chloride (Klor-Con) 40 meq 1X ONCE PO Last administered on 09/13/16 16:50; Start 09/13/16 at 16:00; Stop 09/13/16 at 16:01; Status DC Hydralazine HCl (Apresoline) 10 mg PRN Q4HRS PRN IVP ELEVATED BP, SEE COMMENTS ; Start 09/13/16 at 16:00 Iohexol (Omnipaque 300 Mg/ml) 75 ml 1X ONCE IV Last administered on 09/14/16 10:19; Start 09/14/16 at 07:00; Stop 09/14/16 at 07:01; Status DC Iohexol (Omnipaque 240 Mg/ml) 30 ml 1X ONCE PO Last administered on 09/14/16 10:19; Start 09/14/16 at 07:00; Stop 09/14/16 at 07:01; Status DC Info (Do NOT chart on this entry -- for MONITORING) 1 each PRN DAILY PRN MC SEE COMMENTS; Start 09/14/16 at 06:45; Stop 09/16/16 at 06:44 Lorazepam (Ativan) 1 mg 1X ONCE IV Last administered on 09/14/16t 10:12; Start 09/14/16 at 10:15; Stop 09/14/16 at 10:16; Status DC Active Scripts Active Reported Tramadol Hcl 50 Mg Tablet 50 Mg PO TID PRN Ventolin Hfa Inhaler (Albuterol Sulfate) 18 Gm Hfa.aer.ad 2 Puff INH QID PRN Advair 250-50 Diskus (Fluticasone/Salmeterol) 1 Each Disk.w.dev 1 Puff IH BID Vitals/I & O Vital Sign - Last 24 Hours 09/13/16 09/13/16 09/13/16 09/13/16 13:35 13:41 13:56 14:13 Temp 97.8 97.8 Pulse 122 120 Resp 33 32 23 B/P 133/78 140/77 Pulse Ox 85 89 94 94 O2 Delivery Room Air Nasal Cannula Nasal Cannula O2 Flow Rate 3 3.0 3.0 09/13/16 09/13/16 09/13/16 09/13/16 14:23 15:08 15:30 15:37 Pulse 110 111 110 Resp 27 28 39 B/P 158/77 147/83 138/77 Pulse Ox 95 94 94 96 O2 Delivery Nasal Cannula Nasal Cannula Nasal Cannula Nasal Cannula O2 Flow Rate 3 3 3 3.0 09/13/16 09/13/16 09/13/16 09/13/16 16:30 16:50 17:30 18:43 Temp 98.2 98.2 Pulse 113 110 Resp 21 25 20 B/P 141/76 133/85 Pulse Ox 96 93 93 O2 Delivery Nasal Cannula Nasal Cannula Nasal Cannula O2 Flow Rate 3 3.0 3.0 09/13/16 09/13/16 09/13/16 09/13/16 19:30 20:05 20:37 21:29 Temp 97.4 97.4 Pulse 114 Resp 18 18 B/P 111/64 Pulse Ox 93 93 96 O2 Delivery Nasal Cannula Nasal Cannula Nasal Cannula Nasal Cannula O2 Flow Rate 3.0 3.0 3.0 09/13/16 09/14/16 09/14/1609/14/17 23:00 03:00 04:24 05:25 Temp 97.9 97.7 97.9 97.7 Pulse 116 94 Resp 20 18 0 20 B/P 134/53 140/65 Pulse Ox 93 97 97 97 O2 Delivery Nasal Cannula Nasal Cannula Nasal Cannula Nasal Cannula O2 Flow Rate 3.0 3.0 09/14/16 09/14/16 09/14/16 07:22 08:00 08:18 Temp 98.1 98.1 Pulse 93 Resp 17 B/P 101/62 Pulse Ox 97 96 O2 Delivery Nasal Cannula Nasal Cannula Nasal Cannula O2 Flow Rate 3.0 3.0 3.0 Intake and Output 09/13/16 09/13/16 09/14/16 15:00 23:00 07:00 Intake Total 1000 ml 1470 ml Output Total 800 ml 300 ml Balance 200 ml 1170 ml CLAUDIA THAKKAR MD Sep 14, 2016 10:47
--- NOTE | 2016-09-14 11:16 | RAD ---
Indication lung cancer. Staging. Assess for metastatic disease. Contrast imaging through the abdomen and pelvis was performed. Both IV and oral contrast were administered. Approximately 75 cc of Omnipaque 300 was administered intravenously. Note is made of the CT examination of the chest one day earlier and the findings. No prior imaging of the abdomen is available. Regarding findings in the lower chest see CT report of the chest one day earlier. There is a low-density mass in the left lobe of the liver larger than on the examination 05/25/2016 now measuring 2.6 cm in greatest dimension most compatible with a metastatic focus. There are additional smaller low-density foci in the left lobe and in the right lobe also most compatible with metastatic disease. The spleen is unremarkable and the gallbladder appears grossly normal. The pancreas appears unremarkable. The adrenal glands and kidneys appear normal. Moderately heavy atherosclerotic plaquing is noted associated with the abdominal aorta. There is some mild retroperitoneal adenopathy. This is likely incidental. Definite pathologic central or retroperitoneal adenopathy is not seen. No significant soft tissue finding is apparent in the pelvis. There is a possible small bladder calculus. There is a lytic focus associated with the left ischium, just above the acetabulum, compatible with lytic metastatic disease. An additional lytic focus is seen associated with the left iliac bone, lateral to the sacrum. IMPRESSION: Multiple hepatic masses most compatible with metastatic disease. Lytic metastatic disease in the left ischium and iliac bone PQRS Compliance Statement: One or more of the following individualized dose reduction techniques were utilized for this examination: 1. Automated exposure control 2. Adjustment of the mA and/or kV according to patient size 3. Use of iterative reconstruction technique
--- NOTE | 2016-09-14 11:56 | PDOC ---
Provider Note Provider Note Med Onc consult See dictation # [id number] 1. 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 I d/w him the options of palliative chemo vs hopsice. He wants to think about it. Plan MRI to eval for brain mets. Palliative care consult for treatment goals. Pathology report from [facility]: Cytology [facility] [email or web address] Megan Lowery MD, Director Cytopathology Department of Pathology and Laboratory Medicine [address] [place] [id number] Surgical Pathology Office: [phone] CYTOLOGY REPORT NAME: SANTOS BARCLAY SURG PATH #: [id number] MR #: [id number] ALT ID #: [id number] #: [id number] LOCATION: [facility] DATE OF PROCEDURE: 08/28/2016 AGE: 65 SEX: M DATE RECEIVED: 08/28/2016 : 1950 TIME RECEIVED: 11:30 PHYSICIAN: OTILIO GABRIEL DATE OF REPORT: 08/29/2016 COPY TO: VELIA NEGRETE MD DATE OF PRINTIN08/29/2016 Material Received: A: FNA Lung, Left Hilar Mass History: 65 year old male with history of COPD and left hilar mass. Gross Description: (1 Pap, 1 DQ, 1 cell block) Rapid determination of adequacy was performed by the boiler repairman, GENNY, on Diff-Quik stained slide. Pass one is adequate for evaluation. Passes two and three all in CytoLyt for cell block. ######################################################################## Final Diagnosis: A. Lung, Left Hilar Mass, EBUS FNA: Squamous cell carcinoma. Please also see concurrent cytology report (). See comment. Comment: Pursuant to the [employer] [facility] at the [facility] Pathology Department, selected slides from this case have been concurrently reviewed by the following pathologist: Dr. Adame who agrees with the final diagnosis. Attestation: By this signature, I attest that I have personally formulated the final interpretation expressed in this report and that the above diagnosis is based upon my examination of the slides and/or other material indicated in this report. +++Electronically Signed Out By+++ rocky/08/29/2016 Interpreted by: Megan Lowery MD, Attending Physician Brianna Laird M.D. Resident SHARIF FERRARA MD Sep 14, 2016 11:56
--- NOTE | 2016-09-14 12:17 | RAD ---
Indication lung malignancy. Staging. Whole body bone scan imaging was performed. 25 mCi of technetium labeled MDP was administered. No prior bone scan is available. Note is made of CT examinations of the chest and abdomen yesterday and today. Increased activity is seen in the lower cervical spine and upper thoracic spine consistent with the lytic metastatic disease demonstrated on recent CT. An additional focus of increased activity is seen in a lower thoracic vertebral body segment where lytic metastatic disease is apparent on CT. (The conspicuity of the bony metastatic disease in the thoracic spine is more apparent on CT than bone scan imaging). Increased activity is also seen in the left acetabulum also consistent with the finding on CT. The known lytic disease in the left iliac bone is largely obscured by the urinary bladder. IMPRESSION: Several areas of increased uptake consistent with lytic metastatic disease as demonstrated on recent CT examinations.
[2016-09-14 14:56] VITALS: BP 136/79
[2016-09-14] MEDS ORDERED: GADOBUTROL 7.5 MMOL/7.5 ML VIAL IV ONE (15:30)
--- NOTE | 2016-09-14 17:27 | RAD ---
PROCEDURE MRI of the brain without and with contrast 09/14/2016 HISTORY History of metastatic lung cancer. TECHNIQUE Unenhanced T1 weighted sagittal and axial and FLAIR, gradient echo, T2 weighted and diffusion weighted axial images of the brain were obtained. After the intravenous administration 6 cc of Gadavist, enhanced T1 weighted axial and coronal images of the brain were obtained. FINDINGS Images from the study are degraded by patient motion. Patchy and several small scattered areas of abnormally increased signal intensity are seen within the periventricular and subcortical white matter of both cerebral hemispheres along with the carissa on the FLAIR and T2 weighted images consistent with areas of small vessel ischemic disease. No acute parenchymal abnormality is seen. There is no MRI evidence of acute ischemia/infarction. No extra-axial fluid collection is noted. No area of abnormal contrast enhancement is seen. There is no MRI evidence of metastatic disease involving the brain parenchyma. Mild mucosal thickening is seen scattered throughout paranasal sinuses. Moderate to large-sized mastoid effusions are seen bilaterally. Normal flow voids are seen within the major vascular structures surrounding the brain parenchyma. IMPRESSION No acute parenchymal abnormality is seen. There is no MRI evidence of metastatic disease involving the brain parenchyma. Electronically signed by: Paresh Hill MD (Sep 14, 2016 17:25:48)
[2016-09-14] MEDS: ENOXAPARIN 40 MG/0.4 ML DISP.SYRIN. SQ SCH (17:31)
[2016-09-14 19:37] VITALS: BP 124/78
[2016-09-14] MEDS ORDERED: FAMOTIDINE 20 MG TABLET. PO SCH (21:00)
[2016-09-14] MEDS: TRAMADOL 50 MG TABLET. PO PRN (21:01)
[2016-09-14 23:03] VITALS: BP 128/85
[2016-09-15 03:59] VITALS: BP 131/86
[2016-09-15] MEDS: TRAMADOL 50 MG TABLET. PO PRN ×2 (04:59→13:32)
[2016-09-15] MEDS: OXYCODONE/APAP 5/325 TABLET. PO PRN ×2 (05:49→10:44)
[2016-09-15] MEDS: IPRATRPIUM/ALBUTEROL 0.5/2.5MG 3 ML NEBU. NEB SCH ×2 (06:59→11:03)
[2016-09-15 07:00] VITALS: BP 114/76
--- NOTE | 2016-09-15 08:38 | CONS ---
DATE OF CONSULTATION: 09/14/2016 REQUESTING PHYSICIAN: Dr. Mike Figueroa. REASON FOR CONSULTATION: Lung cancer with bone metastasis. HISTORY OF PRESENT ILLNESS: The patient is a 65-year-old gentleman who has a history of cigarette smoking 1 pack per day since the age of 16. He was admitted to [facility] on 05/24/2016, with shortness of breath. He was diagnosed with an acute exacerbation of COPD. He underwent a chest x-ray on 05/24/2016, which revealed faint, patchy, nodular opacities in the right lung base and hyperinflated lungs, slightly emphysematous changes. He underwent CT angiogram on 05/25/2016, which revealed no evidence of pulmonary embolism. There was a left hilar lesion noted at about 2.9 cm with narrowing of the left upper lobe, left lingula, left lower lobe bronchus. There is evidence of 3.1 cm mediastinal lymph node; a 2.9 cm right rib lesion was noted, thought to be metastatic disease; and a 1.7 cm liver lesion was noted, thought to be due to metastasis. He was subsequently evaluated at [facility]. He was evaluated by Pulmonary Medicine at . He underwent bronchoscopy on 08/28/2016. He underwent fine needle aspiration of the hilar mass and sampling of the lymph nodes. Pathology from the left hilar mass revealed squamous cell carcinoma. Pathology from the lymph nodes: [place] station 7 was negative for malignancy. He was admitted to [facility] again on 09/13/2016, with generalized weakness and dyspnea and thought to be due to COPD. He underwent CT angiogram of the chest on 09/13/2016. This revealed enlarging left hilar mass with obstruction of the central bronchi. Mediastinal adenopathy has progressed now measuring 4 x 2.2 cm. Enlarging bony metastasis noted in the posterior aspect of the right 3rd rib and mets in the upper thoracic spine. Additional lower thoracic bone metastasis was also noted. There is evidence of liver lesion which is also thought to be due to metastasis. CT scan of the abdomen and pelvis on 09/14/2016, revealed multiple hepatic masses, compatible with metastatic disease and lytic metastatic lesions noted in the left ischium and iliac bone. I was asked to see the patient for further evaluation of lung cancer. PAST MEDICAL HISTORY: Hypertension, asthma, COPD. FAMILY HISTORY: Negative for lung cancer. SOCIAL HISTORY: He has a history of smoking approximately 1 pack of cigarettes per day since the age of 15 and he continues to smoke. REVIEW OF SYSTEMS: A 12-point review of system was performed. Pertinent positives are mentioned in the history of present illness. Rest of the system review is negative. PHYSICAL EXAMINATION: GENERAL APPEARANCE: The patient is a 65-year-old gentleman who is in no acute cardiorespiratory distress. VITAL SIGNS: Blood pressure 101/62, temperature 98.1. HEENT: Atraumatic, normocephalic. Eyes: No icterus. NECK: Supple. CHEST: Bilaterally symmetrical. No crepitations or rhonchi heard. HEART: S1, S2 normal. ABDOMEN: Soft, nontender. No hepatosplenomegaly. CENTRAL NERVOUS SYSTEM: No focal deficits. LYMPHATICS: No lymphadenopathy. SKIN: No rashes. PSYCHOLOGIC: Mood and affect are appropriate. MUSCULOSKELETAL: No joint effusions. LABORATORY DATA: WBC 4.8, hemoglobin 10.5, platelet count 350, sodium 140, potassium 4.1, calcium 8.6, total bilirubin 0.4, AST 19, ALT 22, alkaline phosphatase is 98, albumin 2.9. IMPRESSION AND PLAN: 1. Squamous cell carcinoma of the left hilar region of the lung, stage 4. There is evidence of left hilar mass, mediastinal lymphadenopathy, liver metastasis and bone metastasis, consistent with stage 4 malignancy. I discussed in detail with the patient regarding the diagnosis and prognosis of stage 4 lung cancer. I discussed with him regarding role of palliative chemotherapy and molecular testing with PD-L1 to see if he would qualify for immunotherapy. I also discussed with him about the role of supportive care, comfort care, and hospice. He has developed significant weakness and his functional status is at least at 2 on ECOG performance status scale. I discussed with him regarding the incurable nature of the malignancy and prognosis with and without chemotherapy. I reviewed the risks and benefits of chemotherapy. He would like to discuss with his and think about it and then make a decision. All his questions were answered. 2. Liver metastasis. Asymptomatic, monitor. 3. Bone metastasis. He denies any significant bone pains, but if he develops significant bone pains, then palliative radiation therapy would be an option. Bone scan is still pending. 4. Anemia secondary to malignancy. Hemoglobin is 10.5, monitor. 5. I will obtain a MRI of the brain for completion of staging workup. SHARIF FERRARA MD DR: MARGARITA/eduar JOB#: [id number] / [id number] MIKE Guillen MD [facility]
--- NOTE | 2016-09-15 09:02 | PDOC ---
Provider Note Provider Note DATE OF f/u: 09/15/2016 c/c: f/u of Lung cancer with bone metastasis. HISTORY OF PRESENT ILLNESS: The patient is a 65-year-old gentleman who has a history of cigarette smoking 1 pack per day since the age of 16. He was admitted to [facility] on 05/24/2016, with shortness of breath. He was diagnosed with an acute exacerbation of COPD. He underwent a chest x-ray on 05/24/2016, which revealed faint, patchy, nodular opacities in the right lung base and hyperinflated lungs, slightly emphysematous changes. He underwent CT angiogram on 05/25/2016, which revealed no evidence of pulmonary embolism. There was a left hilar lesion noted at about 2.9 cm with narrowing of the left upper lobe, left lingula, left lower lobe bronchus. There is evidence of 3.1 cm mediastinal lymph node; a 2.9 cm right rib lesion was noted, thought to be metastatic disease; and a 1.7 cm liver lesion was noted, thought to be due to metastasis. He was subsequently evaluated at [facility]. He was evaluated by Pulmonary Medicine at . He underwent bronchoscopy on 08/28/2016. He underwent fine needle aspiration of the hilar mass and sampling of the lymph nodes. Pathology from the left hilar mass revealed squamous cell carcinoma. Pathology from the lymph nodes: [place] station 7 was negative for malignancy. He was admitted to [facility] again on 09/13/2016, with generalized weakness and dyspnea and thought to be due to COPD. He underwent CT angiogram of the chest on 09/13/2016. This revealed enlarging left hilar mass with obstruction of the central bronchi. Mediastinal adenopathy has progressed now measuring 4 x 2.2 cm. Enlarging bony metastasis noted in the posterior aspect of the right 3rd rib with mets in the upper thoracic spine. Additional lower thoracic bone metastasis was also noted. There is evidence of liver lesion which is also thought to be due to metastasis. CT scan of the abdomen and pelvis on 09/14/2016, revealed multiple hepatic masses, compatible with metastatic disease and lytic metastatic lesions noted in the left ischium and iliac bone. I was asked to see the patient for further evaluation of lung cancer. PAST MEDICAL HISTORY: Hypertension, asthma, COPD. FAMILY HISTORY: Negative for lung cancer. SOCIAL HISTORY: He has a history of smoking approximately 1 pack of cigarettes per day since the age of 15 and he continues to smoke. REVIEW OF SYSTEMS: dyspnea better PHYSICAL EXAMINATION: GENERAL APPEARANCE: The patient is a 65-year-old gentleman who is in no acute cardiorespiratory distress. HEENT: Atraumatic, normocephalic. Eyes: No icterus. NECK: Supple. CHEST: Bilaterally symmetrical. No crepitations or rhonchi heard. HEART: S1, S2 normal. ABDOMEN: Soft, nontender. No hepatosplenomegaly. CENTRAL NERVOUS SYSTEM: No focal deficits. LYMPHATICS: No lymphadenopathy. SKIN: No rashes. PSYCHOLOGIC: Mood and affect are appropriate. MUSCULOSKELETAL: No joint effusions. IMPRESSION AND PLAN: 1. Squamous cell carcinoma of the left hilar region of the lung, stage 4. There is evidence of left hilar mass, mediastinal lymphadenopathy, liver metastasis and bone metastasis, consistent with stage 4 malignancy. I discussed in detail with the patient regarding the diagnosis and prognosis of stage 4 lung cancer. I discussed with him regarding role of palliative chemotherapy and molecular testing with PD-L1 to see if he would qualify for immunotherapy. I also discussed with him about the role of supportive care, comfort care, and hospice. He has developed significant weakness and his functional status is at least at 2 on ECOG performance status scale. I discussed with him regarding the incurable nature of the malignancy and prognosis with and without chemotherapy. I reviewed the risks and benefits of chemotherapy. He would like to discuss with his and think about it and then make a decision. All his questions were answered. 2. Liver metastasis. Asymptomatic, monitor. 3. Bone metastasis. He denies any significant bone pains, but if he develops significant bone pains, then palliative radiation therapy would be an option. Bone scan done 09/14/15 reveals mets. 4. Anemia secondary to malignancy. Hemoglobin is 10.5, monitor. 5. MRI of the brain reveals no mets. He wants to go home today. I have advised f/u with me in 1 week. I d/w RN. SHARIF FERRARA MD Sep 15, 2016 09:02
[2016-09-15 11:00] VITALS: BP 134/80
--- NOTE | 2016-09-15 11:48 | DISCH ---
DISCHARGE INSTRUCTIONS Condition on Discharge Condition on Discharge: Stable Activity After Discharge Activity Instructions for Disc: Resume previous activity Diet after Discharge Diet after Discharge: High Protein/High Calorie Contacting the DRMally after DC Call your doctor for: If your condition worsens Follow-Up Follow up with: Dr Hoyos as previously arranged CLAUDIA THAKKAR MD Sep 15, 2016 11:48
[2016-09-15] MEDS ORDERED: OXYC15TA PO (11:50)
[2016-09-15] MEDS ORDERED: DEXA4TAB PO (11:50)
[2016-09-15] MEDS ORDERED: OXYCODONE/APAP 5/325 TABLET. PO ONE (12:00)
[2016-09-15] MEDS: ENOXAPARIN 40 MG/0.4 ML DISP.SYRIN. SQ SCH (12:06)
--- NOTE | 2016-09-15 17:44 | PDOC2 ---
PALLIATIVE CARE Palliative Care Note Palliative Care Consult requested by Dr. Hoyos to address plan of care Diagnosis: Squamous cell carcinoma of the lung stage 4 mets to liver, bone. COPD. Met with patient along with Dr. Sharma who had already reviewed medical condition. Patient is to follow up with Dr. Hoyos Patient and his wish to continue with aggressive options. Code Status: Full Code. Anxious to go home. Addressed pain need with Dr Sharam. patient complaining of pain 8 (0-10) pain 6 at best after pain medication. Plan: Home to follow up with Dr. Hoyos. ZENAIDA MEEKS Sep 15, 2016 17:44
--- NOTE | 2016-09-26 22:15 | DS ---
DATE OF DISCHARGE: 09/15/2016 CHIEF COMPLAINT: Generalized weakness, shortness of breath. HOSPITAL COURSE: The patient is a 65-year-old -[place] smoker who presented to the Emergency Room with generalized weakness. He had had a recent bronchoscopy with biopsy done for suspected lung cancer at [facility] on 08/28/2016. Followup had been arranged, but the patient was too weak to stay at home and decided to come to [facility] instead. A biopsy report was obtained, this showed squamous cell carcinoma. A consult with Dr. Hoyos was obtained as well and a staging workup was obtained, revealing metastatic disease to the liver as well as to the bones. With the results obtained, discussion was held about further treatment with the patient. He wanted to discuss this with his at home. He was therefore discharged with followup appointment with Dr. Hoyos in 1 week. His pain relating to metastatic bone lesions was addressed with oxycodone p.r.n. as well as dexamethasone 4 mg daily. He was continued on albuterol inhalers. PHYSICAL EXAMINATION: VITAL SIGNS: Showed a blood pressure of 134/80, heart rate of 105, respiratory rate of 20. No fevers. GENERAL: This is a well-nourished 65-year-old -[place] gentleman, alert and oriented, in no acute distress. HEENT: Shows no scleral icterus. LUNGS: Clear. HEART: Regular rate and rhythm. ABDOMEN: Positive bowel sounds, soft, nontender. EXTREMITIES: Show no edema. DISCHARGE DISPOSITION: To home. DISCHARGE CONDITION: Improved. DISCHARGE DIAGNOSIS: Squamous cell carcinoma of the lung with liver and bone metastasis. DISCHARGE MEDICATIONS: Please refer to MAR. DISCHARGE INSTRUCTIONS: The patient will follow up with Dr. Hoyos in 1 week. CLAUDIA THAKKAR MD DR: NILESH/nts JOB#: [id number] / [id number]
== END 2016-09-15 13:42 | disposition home or self-care (01) | DRG 180 ==
LOC: ER 13:35 → ED HOLD 14:50 → 2 NORTH 17:35
PROVIDERS: ADMIT Internal Medicine; ATTEND Internal Medicine
DX: C34.92 Malignant neoplasm of unspecified part of left bronchus or lung (principal); J96.21 Acute and chronic respiratory failure with hypoxia; C78.7 Secondary malignant neoplasm of liver and intrahepatic bile duct; C79.51 Secondary malignant neoplasm of bone; E44.1 Mild protein-calorie malnutrition; J44.1 Chronic obstructive pulmonary disease with (acute) exacerbation; R65.10 Systemic inflammatory response syndrome (SIRS) of non-infectious origin without acute organ dysfunction; Z51.5 Encounter for palliative care; F41.9 Anxiety disorder, unspecified; M54.9 Dorsalgia, unspecified; R00.0 Tachycardia, unspecified; R59.0 Localized enlarged lymph nodes; D63.0 Anemia in neoplastic disease; E87.6 Hypokalemia; F17.210 Nicotine dependence, cigarettes, uncomplicated; I10 Essential (primary) hypertension; I25.10 Atherosclerotic heart disease of native coronary artery without angina pectoris; J45.909 Unspecified asthma, uncomplicated; M19.90 Unspecified osteoarthritis, unspecified site; Z85.118 Personal history of other malignant neoplasm of bronchus and lung; Z95.5 Presence of coronary angioplasty implant and graft; Z99.81 Dependence on supplemental oxygen; Z68.20 Body mass index [BMI] 20.0-20.9, adult; Z88.0 Allergy status to penicillin; Z88.2 Allergy status to sulfonamides
CPT/HCPCS: 36415; 70553; 71275; 74177; 78306; 80048; 80053; 83605; 84484; 85007; 85027; 87040; 93005; 94250; 94640; 94760; 96361; 96374; 96375; A9503; J1650; J2060; J2270; J2930; J7030; J7620; Q9966; Q9967; 99285-25; A9585